=== PATIENT | male | born 1975 | race Hispanic/Latino ===

== ENCOUNTER 2019-10-09 16:17 | Emergency (ER) | payer BC, OTHER ==
[2019-10-10 14:01] LABS: SARS-CoV-2 MS2 Positive; SARS-CoV-2 N Gene Positive; SARS-CoV-2 S Gene Positive; SARS-CoV-2 orf1ab Positive
== END 2019-10-09 16:58 | disposition home or self-care (01) ==
LOC: NAV ERS 16:17
DX: U07.1 COVID-19 (principal); R05 Cough; R09.81 Nasal congestion; R19.7 Diarrhea, unspecified; E11.9 Type 2 diabetes mellitus without complications; Z79.899 Other long term (current) drug therapy
CPT/HCPCS: 87635; 99284; U0003

== ENCOUNTER 2023-05-19 18:26 | Emergency (ER) | payer OTHER ==
[2023-05-19] MEDS ORDERED: Acetaminophen 500 MG TAB ONE (18:41)
[2023-05-19] MEDS ORDERED: Nitroglycerin 0.4 MG TAB 1 EACH ONE ×2 (18:41→19:15)
[2023-05-19] MEDS ORDERED: Ondansetron PF 4 MG/2 ML Vial ONE (18:46)
[2023-05-19 18:50] LABS: Red Blood Cell (RBC) Count 4.04 mill/uL (4.70-6.10); White Blood Cell (WBC) Count 8.8 10x3/uL (4.8-10.8)
[2023-05-19 18:51] LABS: #Basophils 0.1 thou/uL (0.0-0.2); #Eosinphils 0.2 thou/uL (0.0-0.7); #Lymphocytes 4.4 thou/uL (1.20-3.40); #Monocytes 0.6 thou/uL (0.11-0.59); #Neutrophils 3.5 thou/uL (1.40-6.50); %Basophils 1.4 % (0.0-1.0); %Eosinophils 2.8 % (0.0-10.0); %Lymphocytes 50.2 % (21.0-51.0); %Monocytes 6.4 % (0.0-10.0); %Neutrophils 39.4 % (42.0-75.0); Hemoglobin 14.3 g/dL (14.0-18.0); Manual Diff?? NO; Mean Corpuscular HGB CONC 34.2 g/dL (32.0-36.0); Mean Platelet Volume 8.9 fL (7.4-10.4); Platelet Count 205 10x3/uL (130-400); RBC Distribution Width 11.4 % (11.5-14.5)
[2023-05-19 19:00] LABS: ALT (SGPT) 28 U/L (8-55); AST (SGOT) 20 U/L (5-34); Albumin 4.6 g/dL (3.5-5.0); Alkaline Phosphatase 80 U/L (40-110); Anion Gap 14 mmol/L (10-20); BUN (Urea Nitrogen) 19 mg/dL (8.9-20.6); Bilirubin, Total 0.7 mg/dL (0.2-1.2); Calc. Creatinine Clearance 0 mL/min (70-130); Calcium 9.4 mg/dL (7.8-10.44); Carbon Dioxide 22 mmol/L (22-29); Chloride 103 mmol/L (98-107); Estimated GFR 97; Globulin 2.4 g/dL (2.4-3.5); Glucose 124 mg/dL (70-105); Lipase 18 U/L (8-78); Potassium 3.4 mmol/L (3.5-5.1); Sodium 136 mmol/L (136-145); Troponin I Less than 0.010 ng/mL (< 0.028)
[2023-05-19] MEDS ORDERED: Morphine 4 MG/ML VIAL ONE (19:15)
[2023-05-19 22:41] LABS: Troponin I 0.155 ng/mL (< 0.028)
[2023-05-20] MEDS ORDERED: Enoxaparin 100 MG (1 mL) SYRINGE ONE (00:15)
== END 2023-05-20 00:29 | disposition short-term general hospital (02) ==
LOC: NAV ERS 18:26
DX: R07.89 Other chest pain (principal); E11.9 Type 2 diabetes mellitus without complications; I10 Essential (primary) hypertension; Z79.899 Other long term (current) drug therapy; Z79.84 Long term (current) use of oral hypoglycemic drugs
CPT/HCPCS: 36415; 71045; 80053; 83690; 83880; 84484; 85025; 93005; 94760; 96372; 96374; 96375; J1650; J2270; J2405